=== PATIENT | female | born 1955 | race Caucasian/White ===

== ENCOUNTER 2022-05-03 09:55 | Day surgery (SDC) | payer OTHER ==
[2022-04-24 15:11] VITALS: BMI 27.3
[2022-05-03] MEDS ORDERED: PROPOFOL 20 ML ONE (12:05)
[2022-05-03 13:34] VITALS: PULSE 80; TEMP 98
[2022-05-03 13:35] VITALS: BP 120/74
== END 2022-05-03 13:45 | disposition home or self-care (01) ==
LOC: FASU-ENDO 09:55
PROVIDERS: ATTEND Internal Medicine Gastroenterology
PROC: 0DJD8ZZ Inspection of Lower Intestinal Tract, Via Natural or Artificial Opening Endoscopic (ICD-10-PCS; principal; 2022-05-03 12:13)
DX: Z12.11 Encounter for screening for malignant neoplasm of colon (principal); Z86.010 Personal history of colon polyps; K64.1 Second degree hemorrhoids
CPT/HCPCS: 82962